=== PATIENT | female | born 1955 | race Caucasian/White ===

== ENCOUNTER → 2017-12-18 | Outpatient (CLI) | payer OTHER ==
--- NOTE | 2017-12-18 15:55 | RAD ---
Clinical Indication: Postmenopausal screening Technique: Bone Densitometry was performed with dual photon absorption of the lumbar spine and proximal right femur. Comparison is from March 03, 2012. Findings: Lumbar Spine: Bone density is 1.035 g/cm2 for L1-L4. T-Score is -1.2 and Z-score 0.6. Age-matched percentage is 108 %. Right Femur neck: Bone density is 0.888 g/cm2. T-Score is -1.1 and Z-score 0.5. Age-matched percentage is 109 %. Spine bone mineral density has increased by 5.3 percent from baseline. Hip bone marrow density has increased by 1.1 percent from baseline. Impression: Osteopenia in the right hip and spine. Electronically signed by: Yan Osborne MD (12/18/2017 3:52 PM) [facility]
== END | disposition home or self-care (01) ==
LOC: DXRAD 14:44
PROVIDERS: ATTEND Family Medicine
DX: Z13.820 Encounter for screening for osteoporosis (principal); M85.88 Other specified disorders of bone density and structure, other site
CPT/HCPCS: 77080